=== PATIENT | female | born 1955 ===

== ENCOUNTER 2017-02-27 21:07 | Emergency (ER) | payer SELFPAY ==
[2017-02-27 21:20] VITALS: BP 147/102; PULSE 85; RESP 20; TEMP 98; O2SAT 97
--- NOTE | 2017-02-27 21:38 | C.PDOC ---
History Of Present Illness 61 year old female presents to the ER complaining of pain to the right chest wall and upper back after sustaining a fall yesterday. Patient reports that she was standing on a step ladder cleaning a shelf and she missed a step as she was coming down the ladder. She states that she hit the right side of her chest when she fell. She states that the pain is worse with movement or deep breathing. She reports that she took Tylenol which provided mild relief. Time Seen by Provider: 02/27/17 21:24 Chief Complaint (Nursing): Back Pain History Per: Patient History/Exam Limitations: no limitations Onset/Duration Of Symptoms: Days Current Symptoms Are (Timing): Still Present Severity: Moderate Past Medical History Reviewed: Historical Data, Nursing Documentation, Vital Signs Vital Signs: Last Vital Signs Temp 98 F 02/27/17 21:11 Pulse 85 02/27/17 21:11 Resp 20 02/27/17 21:11 BP 147/102 H 02/27/17 21:11 Pulse Ox 97 02/27/17 21:59 - Medical History PMH: Back Problems Surgical History: No Surg Hx Family History: States: No Known Family Hx - Social History Hx Tobacco Use: Yes Hx Alcohol Use: No Hx Substance Use: No - Immunization History Hx Tetanus Toxoid Vaccination: No Hx Influenza Vaccination: No Hx Pneumococcal Vaccination: No Review Of Systems Cardiovascular: Positive for: Chest Pain (pain in the right chest wall) Musculoskeletal: Positive for: Back Pain (upper back pain) Neurological: Negative for: Weakness, Numbness Physical Exam - Physical Exam Appears: Non-toxic, No Acute Distress Skin: Normal Color, Warm Head: Atraumatic, Normacephalic Eye(s): bilateral: Normal Inspection Ear(s): Bilateral: Normal Nose: Normal Neck: Supple Chest: Tenderness (tenderness to right lateral chest wall ), Ecchymosis (mild ecchymosis), Other (no swelling) Cardiovascular: Rhythm Regular Respiratory: Normal Breath Sounds, No Accessory Muscle Use, No Rales, No Rhonchi , No Wheezing Back: Normal Inspection, No CVA Tenderness Neurological/Psych: Oriented x3, Normal Speech, Normal Cognition, Normal Motor, Normal Sensation ED Course And Treatment O2 Sat by Pulse Oximetry: 97 Disposition Counseled Patient/Family Regarding: Diagnosis, Need For Followup, Rx Given - Disposition Disposition: HOME/ ROUTINE Disposition Time: 22:36 Condition: STABLE Additional Instructions: Your xray was normal, no fracture. Please apply ice to area 15 minutes three times a day. Take Motrin as needed for pain every 6 hours, with food to not upset stomach. Take Tramadol for severe pain. Follow up with your doctor or return to ER if pain persists over one week. Prescriptions: traMADol [Ultram] 50 mg PO Q8 #20 tab Instructions: Rib Contusion (ED) Forms: [employer] (Belarusian) Print Language: POLISH - POA Present On Arrival: None - Clinical Impression Clinical Impression: Contusion of chest wall - PA / AUTOMATION QA LEAD / Resident Statement MD/DO has reviewed & agrees with the documentation as recorded. - Scribe Statement The provider has reviewed the documentation as recorded by the Jc Holbrook Provider Attestation All medical record entries made by the Demaribe were at my direction and personally dictated by me. I have reviewed the chart and agree that the record accurately reflects my personal performance of the history, physical exam, medical decision making, and the department course for this patient. I have also personally directed, reviewed, and agree with the discharge instructions and disposition.
--- NOTE | 2017-02-28 09:21 | RAD ---
PROCEDURE: Radiographs of the Chest and Right Ribs. HISTORY: pain s.p fall COMPARISON: None available. TECHNIQUE: Frontal radiograph of the chest and multiple oblique radiographs of the right ribs were obtained. FINDINGS: RIGHT RIBS: No fracture or focal lesion visualized. LUNGS: No evidence of acute pulmonary disease PLEURA: No pneumothorax or pleural fluid. CARDIOVASCULAR: Normal sized heart. No pulmonary vascular congestion. OTHER FINDINGS: None. IMPRESSION: No radiographic evidence of acute displaced fracture at the right ribs.
== END 2017-02-27 22:54 | disposition home or self-care (01) ==
LOC: C.ER 21:07
DX: S20.211A Contusion of right front wall of thorax, initial encounter (principal); W11.XXXA Fall on and from ladder, initial encounter; Y93.E9 Activity, other interior property and clothing maintenance

== ENCOUNTER 2018-04-19 11:25 | Emergency (ER) | payer MEDICAID ==
[2018-04-19 11:42] VITALS: BP 148/90; PULSE 84; RESP 16; TEMP 97.5; O2SAT 98
--- NOTE | 2018-04-19 12:28 | C.PDOC ---
History Of Present Illness 63 y/o female presents to the ED complaining of left knee pain for 2 weeks. Denies recent injury or fall. Pain worsens when standing. Patient has tried wearing a knee brace with some relief. She reports taking ibuprofen on and off, last dose was 2 days ago. Patient adds that she sits for prolonged periods at her job, and questions whether pain may be attributed to her sedentary job vs. being overweight. Time Seen by Provider: 04/19/18 11:50 Chief Complaint (Nursing): Lower Extremity Problem/Injury History Per: Patient History/Exam Limitations: no limitations Onset/Duration Of Symptoms: Days Current Symptoms Are (Timing): Still Present Past Medical History Reviewed: Historical Data, Nursing Documentation, Vital Signs Vital Signs: Last Vital Signs Temp 97.5 F L 04/19/18 11:40 Pulse 84 04/19/18 11:40 Resp 16 04/19/18 11:40 BP 148/90 04/19/18 11:40 Pulse Ox 98 04/19/18 11:40 - Medical History PMH: Back Problems Surgical History: No Surg Hx Family History: States: No Known Family Hx - Social History Hx Tobacco Use: Yes Hx Alcohol Use: No Hx Substance Use: No - Immunization History Hx Tetanus Toxoid Vaccination: No Hx Influenza Vaccination: No Hx Pneumococcal Vaccination: No Review Of Systems Constitutional: Negative for: Fever, Chills, Weakness Cardiovascular: Negative for: Chest Pain Respiratory: Negative for: Cough, Shortness of Breath Gastrointestinal: Negative for: Nausea, Vomiting, Diarrhea Musculoskeletal: Positive for: Leg Pain (Left knee) Skin: Negative for: Rash Neurological: Negative for: Weakness, Numbness, Incoordination Physical Exam - Physical Exam Appears: Well, Non-toxic, No Acute Distress Skin: Normal Color, Warm, No Rash Head: Atraumatic, Normacephalic Eye(s): bilateral: Normal Inspection (no scleral icterus), PERRL, EOMI Oral Mucosa: Moist Neck: Normal ROM, Supple Chest: Symmetrical Respiratory: No Accessory Muscle Use, Other (Normal inspiratory effort) Extremity: Tenderness (over the medial/distal aspect of left knee), No Calf Tenderness, No Swelling (to lower extremities), Other (No effusion, bulge, or joint laxity; No erythema or obvious rash) Pulses: Left Dorsalis Pedis: Normal (2+), Right Dorsalis Pedis: Normal (2+) Neurological/Psych: Oriented x3, Normal Cranial Nerves, Normal Motor, Normal Sensation ED Course And Treatment O2 Sat by Pulse Oximetry: 98 (RA) Pulse Ox Interpretation: Normal Medical Decision Making Medical Decision Making: Impression: Atraumatic knee pain Initial Plan: - 600 mg PO Motrin - Left knee x-ray Disposition Counseled Patient/Family Regarding: Studies Performed, Diagnosis, Need For Followup, Rx Given - Disposition Referrals: James Mix III, MD [Staff Provider] - Disposition: HOME/ ROUTINE Disposition Time: 12:46 Condition: STABLE Prescriptions: traMADol [Ultram] 50 mg PO TID PRN #15 tab PRN Reason: Pain, Severe (8-10) Instructions: Knee Pain (DC) Forms: [facility] (Syriac), General Discharge Instructions, Work Excuse Print Language: CAMBODIAN - Clinical Impression Clinical Impression: Knee pain, left - PA / CONSTRUCTION CONSULTANT / Resident Statement MD/DO has reviewed & agrees with the documentation as recorded. - Scribe Statement The provider has reviewed the documentation as recorded by the Scribcorey Almaraz All medical record entries made by the Scribe were at my direction and personally dictated by me. I have reviewed the chart and agree that the record accurately reflects my personal performance of the history, physical exam, medical decision making, and the department course for this patient. I have also personally directed, reviewed, and agree with the discharge instructions and disposition.
--- NOTE | 2018-04-19 15:05 | RAD ---
PROCEDURE: Left Knee Radiographs. HISTORY: pain COMPARISON: None available FINDINGS: BONES: No acute displaced fracture. JOINTS: No dislocation. JOINT EFFUSION: Probable small joint effusion. OTHER FINDINGS: None. IMPRESSION: Probable small suprapatellar joint effusion. No acute displaced fracture or dislocation identified. If symptoms persist, or if there is continued clinical concern, x-ray follow-up in 7-10 days should be considered.
== END 2018-04-19 12:57 | disposition home or self-care (01) ==
LOC: C.ER 11:25
DX: M25.562 Pain in left knee (principal)